=== PATIENT | female | born 1995 ===

== ENCOUNTER 2020-02-01 05:26 | Inpatient (IN) ==
[2020-02-01] MEDS ORDERED: DEXTROSE 50% 25 GM/50 ML VIAL IV PRN (07:56)
[2020-02-01] MEDS ORDERED: GLUCAGON 1 MG VIAL IM PRN (07:56)
[2020-02-01] MEDS ORDERED: DEXTROSE 10% 250 ML BAG IV PRN (08:15)
[2020-02-01] MEDS ORDERED: PANTOPRAZOLE 40 MG TABLET PO SCH (09:00)
[2020-02-01 10:46] LABS: Hematocrit 35.4 VOL% (35.7-47.0); Hemoglobin 11.8 GM/DL (12.0-16.0); Immature Granulocytes % 0.4 %; Immature Granulocytes Absolute 0.01 #; Lymphocytes # 0.8 10*3/uL (1.4-4.0); Lymphocytes % 35.7 % (21.3-54.2); Mean Corpuscular HGB Conc 33.3 GM/DL (32-36); Mean Corpuscular Volume 82.9 FL (87-102); Mean Platelet Volume 11.4 FL (9.6-12.0); Monocytes % 7.8 % (1.7-12.7); Neutrophils % 56.1 % (38.7-73.9); Platelet Count 159 T/CUMM (130-400); Red Blood Count 4.27 MC/CUMM (3.8-5.5); Red Cell Distribution Width 13.1 % (9.3-17.3); White Blood Count 2.3 T/CUMM (4-12)
[2020-02-01 11:05] LABS: Hypochromasia 1+; Microcytosis Slight; Ovalocytes Slight; Platelet Estimate Adequate
[2020-02-01 11:11] LABS: Risk Ratio 2.42; Thyroid Stimulating Hormone 3.03 uIU/ml (0.358-3.74); VLDL CHOLESTEROL 17.6 MG/DL
[2020-02-01 11:17] LABS: Calcium 7.8 MG/DL (8.5-10.1); Osmolality,Calculated 273.7 MOS/KG (273-304)
[2020-02-01] MEDS: POTASSIUM CHLORIDE 20 MEQ TABLET PO PRN ×3 (12:34→21:30)
[2020-02-01] MEDS: PANTOPRAZOLE 40 MG TABLET PO SCH (12:34)
[2020-02-01] MEDS ORDERED: AZITHROMYCIN INJ 500 MG in SODIUM CHLORIDE 0.9% 250 ML IV SCH (14:00)
[2020-02-01] MEDS: DOXYCYCLINE HYCLATE 100 MG CAPSULE PO SCH (17:03)
[2020-02-01] MEDS: cefTRIAXone 1,000 MG in SYRINGE 1 EACH IV SCH (17:03)
[2020-02-01] MEDS: ACETAMINOPHEN 325 MG TABLET PO PRN ×2 (17:26→21:30)
[2020-02-01 18:02] LABS: Apearance,Urine CLEAR (Clear); Bilirubin,Urine Negative (Negative); Blood, Urine Small mg/dL (Negative); Glucose,Urine (UA) Negative (Negative); Ketones,Urine 20 mg/dL (Negative); Nitrite,Urine Negative (Negative); Protein,Urine Negative; RBC,Urine 1 /HPF (0-4); Squamous Epithelial Cell,Urine Occasional /HPF (0-10); Urine Color Yellow (Yellow); Urine Specific Gravity 1.009 (1.001-1.035); Urine Urobilinogen < 2.0 EU/DL (0.2-1.0); WBC,Urine 2 /HPF (0-6)
[2020-02-01 18:40] LABS: Troponin I 0.022 NG/ML (0.00-0.045)
[2020-02-02] MEDS: ACETAMINOPHEN 325 MG TABLET PO PRN ×3 (04:25→21:00)
[2020-02-02 05:34] LABS: Basophils % 0.3 % (0.0-0.8); Hematocrit 37.5 VOL% (35.7-47.0); Hemoglobin 11.9 GM/DL (12.0-16.0); Immature Granulocytes % 0.3 %; Immature Granulocytes Absolute 0.01 #; Lymphocytes # 0.7 10*3/uL (1.4-4.0); Lymphocytes % 17.9 % (21.3-54.2); Mean Corpuscular HGB Conc 31.7 GM/DL (32-36); Mean Platelet Volume 11.1 FL (9.6-12.0); Monocytes % 4.3 % (1.7-12.7); Neutrophils % 77.2 % (38.7-73.9); Platelet Count 177 T/CUMM (130-400); Red Blood Count 4.31 MC/CUMM (3.8-5.5); Red Cell Distribution Width 13.2 % (9.3-17.3)
[2020-02-02 05:49] LABS: Bilirubin,Total 0.4 MG/DL (0.2-1.0); Calcium 8.3 MG/DL (8.5-10.1); Osmolality,Calculated 274.7 MOS/KG (273-304); Total Protein 7.2 G/DL (6.4-8.3)
[2020-02-02] MEDS: PANTOPRAZOLE 40 MG TABLET PO SCH (09:12)
[2020-02-02] MEDS: ZINC SULFATE 220 MG CAPSULE PO SCH (09:12)
[2020-02-02] MEDS: DOXYCYCLINE HYCLATE 100 MG CAPSULE PO SCH ×2 (09:12→16:00)
[2020-02-02] MEDS: ONDANSETRON 4 MG/2 ML VIAL IV PRN (09:59)
[2020-02-02] MEDS: cefTRIAXone 1,000 MG in SYRINGE 1 EACH IV SCH (16:37)
[2020-02-03 05:12] LABS: Hematocrit 37.5 VOL% (35.7-47.0); Hemoglobin 12.1 GM/DL (12.0-16.0); Immature Granulocytes % 0.4 %; Immature Granulocytes Absolute 0.02 #; Lymphocytes # 0.7 10*3/uL (1.4-4.0); Mean Corpuscular HGB Conc 32.3 GM/DL (32-36); Mean Corpuscular Volume 86.2 FL (87-102); Mean Platelet Volume 11.1 FL (9.6-12.0); Neutrophils % 82.6 % (38.7-73.9); Platelet Count 187 T/CUMM (130-400); Red Blood Count 4.35 MC/CUMM (3.8-5.5); Red Cell Distribution Width 13.2 % (9.3-17.3); White Blood Count 5.3 T/CUMM (4-12)
[2020-02-03 05:41] LABS: Albumin 2.7 G/DL (3.4-5.0); Bilirubin,Total 0.8 MG/DL (0.2-1.0); Calcium 8.1 MG/DL (8.5-10.1); Osmolality,Calculated 271.8 MOS/KG (273-304); Total Protein 7.1 G/DL (6.4-8.3)
[2020-02-03] MEDS: POTASSIUM CHLORIDE 20 MEQ TABLET PO PRN (09:03)
[2020-02-03] MEDS: DOXYCYCLINE HYCLATE 100 MG CAPSULE PO SCH (09:03)
[2020-02-03] MEDS: PANTOPRAZOLE 40 MG TABLET PO SCH (09:03)
[2020-02-03] MEDS: ACETAMINOPHEN 325 MG TABLET PO PRN (19:58)
[2020-02-04 06:13] LABS: Basophils % 0.3 % (0.0-0.8); Eosinophils % 0.9 % (0.00-10.9); Hematocrit 37.8 VOL% (35.7-47.0); Hemoglobin 12.2 GM/DL (12.0-16.0); Immature Granulocytes % 0.6 %; Immature Granulocytes Absolute 0.02 #; Lymphocytes # 0.9 10*3/uL (1.4-4.0); Lymphocytes % 29.4 % (21.3-54.2); Mean Corpuscular HGB Conc 32.3 GM/DL (32-36); Mean Corpuscular Volume 88.1 FL (87-102); Neutrophils % 61.8 % (38.7-73.9); Platelet Count 208 T/CUMM (130-400); Red Blood Count 4.29 MC/CUMM (3.8-5.5); Red Cell Distribution Width 13.3 % (9.3-17.3); White Blood Count 3.2 T/CUMM (4-12)
[2020-02-04 07:31] LABS: Atypical Lymphocytes Few; Band Neutrophils 2 % (0-10); Eosinophils 1 % (0-10); Lymphocytes 27 % (20-55); Segmented Neutrophils 61 % (50-85); Total Cells Counted 100
[2020-02-04 07:32] LABS: Hypochromasia 1+; Microcytosis Slight; Platelet Estimate Normal
[2020-02-04 08:23] LABS: Albumin 2.6 G/DL (3.4-5.0); Calcium 8.7 MG/DL (8.5-10.1); Total Protein 7.2 G/DL (6.4-8.3)
[2020-02-04 08:24] LABS: Osmolality,Calculated 273.5 MOS/KG (273-304)
[2020-02-04] MEDS: PANTOPRAZOLE 40 MG TABLET PO SCH (08:40)
[2020-02-04] MEDS: ZINC SULFATE 220 MG CAPSULE PO SCH (08:40)
[2020-02-04] MEDS: cefTRIAXone 1,000 MG in SYRINGE 1 EACH IV SCH (11:28)
[2020-02-04] MEDS ORDERED: HYDROXYCHLOROQUINE 200 MG TABLET PO ONE (13:00)
[2020-02-04] MEDS: VANCOMYCIN INJ 1,750 MG in SODIUM CHLORIDE 0.9% 500 ML IV SCH (16:19)
[2020-02-04] MEDS: DOXYCYCLINE HYCLATE 100 MG CAPSULE PO SCH (18:20)
[2020-02-04] MEDS: ACETAMINOPHEN 325 MG TABLET PO PRN (20:21)
[2020-02-05] MEDS: VANCOMYCIN INJ 1,750 MG in SODIUM CHLORIDE 0.9% 500 ML IV SCH ×2 (01:20→17:31)
[2020-02-05 07:04] LABS: Calcium 8.3 MG/DL (8.5-10.1); Osmolality,Calculated 280.1 MOS/KG (273-304)
[2020-02-05] MEDS ORDERED: HYDROXYCHLOROQUINE 200 MG TABLET PO ONE (09:00)
[2020-02-05] MEDS: DOXYCYCLINE HYCLATE 100 MG CAPSULE PO SCH ×2 (09:50→17:35)
[2020-02-05] MEDS: PANTOPRAZOLE 40 MG TABLET PO SCH (09:50)
[2020-02-05] MEDS: cefTRIAXone 1,000 MG in SYRINGE 1 EACH IV SCH (13:44)
[2020-02-05] MEDS: HYDROXYCHLOROQUINE 200 MG TABLET PO SCH (22:15)
[2020-02-06] MEDS: VANCOMYCIN INJ 1,750 MG in SODIUM CHLORIDE 0.9% 500 ML IV SCH (06:28)
[2020-02-06] MEDS: HYDROXYCHLOROQUINE 200 MG TABLET PO SCH ×2 (09:48→21:55)
[2020-02-06] MEDS: ZINC SULFATE 220 MG CAPSULE PO SCH (09:48)
[2020-02-06] MEDS: PANTOPRAZOLE 40 MG TABLET PO SCH (09:48)
[2020-02-06] MEDS: DOXYCYCLINE HYCLATE 100 MG CAPSULE PO SCH ×2 (09:51→17:20)
[2020-02-06] MEDS: cefTRIAXone 1,000 MG in SYRINGE 1 EACH IV SCH (11:19)
[2020-02-06] MEDS: ONDANSETRON 4 MG/2 ML VIAL IV PRN (11:19)
[2020-02-06] MEDS: ACETAMINOPHEN 325 MG TABLET PO PRN (21:55)
[2020-02-07] MEDS ORDERED: VANCOMYCIN INJ 1,750 MG in SODIUM CHLORIDE 0.9% 500 ML IV SCH (00:30)
[2020-02-07] MEDS: DOXYCYCLINE HYCLATE 100 MG CAPSULE PO SCH (09:33)
[2020-02-07] MEDS: PANTOPRAZOLE 40 MG TABLET PO SCH (09:33)
[2020-02-07] MEDS: HYDROXYCHLOROQUINE 200 MG TABLET PO SCH ×2 (09:33→21:29)
[2020-02-07] MEDS ORDERED: DEXTROSE 50% 25 GM/50 ML VIAL IV PRN (10:26)
[2020-02-07] MEDS: ceFAZolin 2,000 MG in PREMIX 1 EACH IV SCH ×2 (12:05→17:02)
[2020-02-07] MEDS: INSULIN LISPRO 100 UNIT/ML SUBCUT SCH ×3 (14:44→21:28)
[2020-02-08] MEDS: ACETAMINOPHEN 325 MG TABLET PO PRN ×4 (00:35→20:05)
[2020-02-08] MEDS: ceFAZolin 2,000 MG in PREMIX 1 EACH IV SCH ×3 (01:45→17:00)
[2020-02-08 06:54] LABS: Basophils % 0.2 % (0.0-0.8); Eosinophils # 0.2 10*3/uL (0.0-0.87); Hematocrit 35.4 VOL% (35.7-47.0); Hemoglobin 11.7 GM/DL (12.0-16.0); Immature Granulocytes % 0.7 %; Immature Granulocytes Absolute 0.06 #; Lymphocytes % 11.6 % (21.3-54.2); Mean Corpuscular HGB Conc 33.1 GM/DL (32-36); Mean Corpuscular Volume 85.3 FL (87-102); Mean Platelet Volume 10.5 FL (9.6-12.0); Neutrophils % 75.5 % (38.7-73.9); Platelet Count 227 T/CUMM (130-400); Red Blood Count 4.15 MC/CUMM (3.8-5.5); Red Cell Distribution Width 13.2 % (9.3-17.3)
[2020-02-08 07:25] LABS: Albumin 2.5 G/DL (3.4-5.0); Bilirubin,Total 0.5 MG/DL (0.2-1.0); Calcium 8.5 MG/DL (8.5-10.1); Ferritin 187.6 ng/ml (8-252); Osmolality,Calculated 272.7 MOS/KG (273-304); Total Protein 7.1 G/DL (6.4-8.3)
[2020-02-08] MEDS: INSULIN LISPRO 100 UNIT/ML SUBCUT SCH ×4 (08:52→20:05)
[2020-02-08] MEDS: PANTOPRAZOLE 40 MG TABLET PO SCH (08:53)
[2020-02-08] MEDS: HYDROXYCHLOROQUINE 200 MG TABLET PO SCH ×2 (08:53→20:05)
[2020-02-09] MEDS: ceFAZolin 2,000 MG in PREMIX 1 EACH IV SCH ×2 (01:14→09:19)
[2020-02-09] MEDS: ACETAMINOPHEN 325 MG TABLET PO PRN (02:11)
[2020-02-09] MEDS: PANTOPRAZOLE 40 MG TABLET PO SCH (09:19)
[2020-02-09] MEDS: HYDROXYCHLOROQUINE 200 MG TABLET PO SCH (09:19)
[2020-02-09] MEDS: INSULIN LISPRO 100 UNIT/ML SUBCUT SCH ×2 (09:19→14:28)
[2020-02-09 14:28] VITALS: BP 112/58
[2020-02-09 14:42] LABS: Albumin 2.6 G/DL (3.4-5.0); Bilirubin,Total 0.6 MG/DL (0.2-1.0); Calcium 9.2 MG/DL (8.5-10.1); Osmolality,Calculated 266.1 MOS/KG (273-304); Total Protein 7.1 G/DL (6.4-8.3)
== END 2020-02-09 15:30 | disposition home or self-care (01) | DRG 177 ==
LOC: SUATTDRO 07:40 → N.2E 07:40
PROVIDERS: ADMIT Internal Medicine; ATTEND Internal Medicine

== ENCOUNTER 2020-02-09 22:20 | Inpatient (IN) ==
[2020-02-09] MEDS ORDERED: ALBUTEROL/IPRATROPIUM 3 ML NEB RESP TX STA (23:10)
[2020-02-09] MEDS ORDERED: methylPREDNISolone SOD SUC 125 MG/2 ML VIAL IV STA (23:10)
[2020-02-09] MEDS ORDERED: ONDANSETRON 4 MG/2 ML VIAL IV STA (23:10)
[2020-02-09] MEDS ORDERED: VANCOMYCIN INJ 1,000 MG in SODIUM CHLORIDE 0.9% 250 ML IV STA (23:10)
[2020-02-09] MEDS ORDERED: VANCOMYCIN 1,000 MG VIAL ONE (23:15)
[2020-02-09 23:43] LABS: ABG Base Excess -0.1 MMOL/L (-2.5-2.5); ABG HCO3 24.2 MMOL/L (20-26); ABG Oxygen Saturation 92.6 % (95-100); ABG PCO2 30.9 MM HG (35-48); ABG PH 7.473 (7.35-7.45); ABG PO2 65.2 MM HG (80-95); ABG TCO2 19.8 MMOL/L (23-27); Allen Test Positive
[2020-02-10 00:03] LABS: Basophils % 0.2 % (0.0-0.8); Eosinophils # 0.2 10*3/uL (0.0-0.87); Eosinophils % 1.4 % (0.00-10.9); Hematocrit 42.2 VOL% (35.7-47.0); Hemoglobin 13.5 GM/DL (12.0-16.0); Immature Granulocytes % 0.7 %; Immature Granulocytes Absolute 0.08 #; Lymphocytes # 1.1 10*3/uL (1.4-4.0); Lymphocytes % 10.4 % (21.3-54.2); Mean Corpuscular Volume 85.3 FL (87-102); Mean Platelet Volume 10.7 FL (9.6-12.0); Monocytes % 8.9 % (1.7-12.7); Neutrophils % 78.4 % (38.7-73.9); Platelet Count 316 T/CUMM (130-400); Red Blood Count 4.95 MC/CUMM (3.8-5.5); Red Cell Distribution Width 13.1 % (9.3-17.3); White Blood Count 10.8 T/CUMM (4-12)
[2020-02-10 00:23] LABS: Alanine Aminotransferase 62 U/L (13-56); Albumin 2.9 G/DL (3.4-5.0); Alkaline Phosphatase 143 U/L (45-117); Aspartate Amino Transferase 31 U/L (0-37); Blood Urea Nitrogen 9 MG/DL (7-18); Calcium 9.4 MG/DL (8.5-10.1); Estimated Glom Filtration Rate 116 ML/MIN; Glucose 94 MG/DL (74-106); Osmolality,Calculated 266.2 MOS/KG (273-304); Troponin I < 0.015 NG/ML (0.00-0.045)
[2020-02-10 00:26] LABS: INR 1.1; PT Patient Result 11.6 SECS (9.8-11.9)
[2020-02-10] MEDS ORDERED: ENOXAPARIN 100 MG/ML SYRINGE SUBCUT STA (01:20)
[2020-02-10 01:35] LABS: Apearance,Urine CLEAR (Clear); Bilirubin,Urine Negative (Negative); Blood, Urine Small mg/dL (Negative); Glucose,Urine (UA) Negative (Negative); Ketones,Urine 20 mg/dL (Negative); Mucus,Urine Moderate /LPF (Occasional); Nitrite,Urine Negative (Negative); Protein,Urine 30 MG/DL; RBC,Urine 23 /HPF (0-4); Squamous Epithelial Cell,Urine Occasional /HPF (0-10); Urine Color Yellow (Yellow); Urine Specific Gravity 1.021 (1.001-1.035); Urine Urobilinogen < 2.0 EU/DL (0.2-1.0); WBC,Urine 4 /HPF (0-6)
[2020-02-10] MEDS ORDERED: ENOXAPARIN 120 MG/0.8 ML SYRINGE SUBCUT ONE (01:46)
[2020-02-10] MEDS ORDERED: GLUCAGON 1 MG VIAL IM PRN (01:56)
[2020-02-10] MEDS ORDERED: NICOTINE 21 MG/24 HR PATCH TRANSDERM PRN (01:56)
[2020-02-10] MEDS ORDERED: ACETAMINOPHEN 325 MG TABLET PO PRN (01:56)
[2020-02-10] MEDS ORDERED: ONDANSETRON 4 MG/2 ML VIAL IV PRN (01:56)
[2020-02-10] MEDS ORDERED: hydrALAZINE 20 MG/1 ML VIAL IV PRN (01:56)
[2020-02-10] MEDS ORDERED: DEXTROSE 10% 250 ML BAG IV PRN (02:27)
[2020-02-10] MEDS: ALBUTEROL INHALER 18 GM INH SCH ×7 (02:58→22:36)
[2020-02-10] MEDS ORDERED: MEROPENEM 1,000 MG in SODIUM CHLORIDE 0.9% 100 ML IV SCH (06:30)
[2020-02-10] MEDS ORDERED: VANCOMYCIN INJ 1,500 MG in SODIUM CHLORIDE 0.9% 500 ML IV SCH (06:30)
[2020-02-10] MEDS: INSULIN REGULAR 100 UNIT/ML SUBCUT SCH ×4 (09:04→21:05)
[2020-02-10] MEDS: POTASSIUM CHLORIDE 20 MEQ TABLET PO PRN ×4 (09:05→16:07)
[2020-02-10] MEDS: CEFEPIME 1,000 MG in SODIUM CHLORIDE 0.9% 100 ML IV SCH ×3 (09:05→20:31)
[2020-02-10] MEDS: APIXABAN 5 MG TABLET PO SCH ×2 (09:05→20:31)
[2020-02-11] MEDS ORDERED: ENOXAPARIN 120 MG/0.8 ML SYRINGE SUBCUT SCH (02:00)
[2020-02-11] MEDS: CEFEPIME 1,000 MG in SODIUM CHLORIDE 0.9% 100 ML IV SCH ×3 (02:15→14:57)
[2020-02-11] MEDS: ALBUTEROL INHALER 18 GM INH SCH ×4 (02:31→14:58)
[2020-02-11] MEDS: INSULIN REGULAR 100 UNIT/ML SUBCUT SCH ×2 (07:30→11:11)
[2020-02-11] MEDS: APIXABAN 5 MG TABLET PO SCH (09:00)
[2020-02-11 12:22] VITALS: BP 117/72
== END 2020-02-11 16:13 | disposition home or self-care (01) | DRG 177 ==
LOC: EDBD → EDUNIT# → N.ED 22:20 → N.EDINP 02-10 01:56 → N.2E 02-10 03:20
PROVIDERS: ADMIT Internal Medicine; ATTEND Internal Medicine